=== PATIENT | female | born 1955 | race Caucasian/White ===

== ENCOUNTER 2019-02-05 04:26 | Observation (INO) | payer MEDICARE ==
--- NOTE | 2019-02-05 12:51 | HP ---
CHIEF COMPLAINT: Slurred speech. HISTORY OF PRESENT ILLNESS: The patient is a 63-year-old female with no past medical history, who presents to the hospital with complaints of slurred speech going on for the past 2 or 3 days. The patient states that she has been having some hard times getting words out at times. They last for very brief moments and then go away. She stated that she had an episode tonight around 10 p.m., where she could not really get her words out, so she came into the hospital for further evaluation. The patient currently denies any fevers or chills, any nausea, vomiting, or diarrhea. PAST MEDICAL HISTORY: Denies any past medical history. PAST SURGICAL HISTORY: She has a history of back surgery with titanium rods in her back, and . ALLERGIES: SHE HAS NO KNOWN DRUG ALLERGIES. MEDICATIONS: She takes none. FAMILY HISTORY: Mother had an aneurysm. REVIEW OF SYSTEMS: All negative except for the ones mentioned above in the HPI. SOCIAL HISTORY: She smokes 3/4 packs a day. Drinks 3-4 beers a day. Denies any drug use. She is a full code. Lives with her son. LABORATORY RESULTS: As of the following; Sodium 132, potassium 5.0, BUN of 7, creatinine 0.63, glucose of 83. Her troponin is 0.04. INR is normal. WBC of 6.2, hemoglobin of 14.8, hematocrit of 42.6, platelets of 183. Urine appears to be clear. She did have a CT head, which indicated chronic left parietal occipital infarct. She also had a chest x-ray, which did not show any acute abnormalities. ASSESSMENT AND PLAN: The patient is a very pleasant 63-year-old female, who presents to the hospital with complaints of slurred speech. 1. Slurred speech, most likely secondary to transient ischemic attack versus stroke. The patient's CT does indicate an old parietal occipital stroke. We will order an MRI. However, I am unclear if this is compatible with her titanium michelle in her spine. We will also start her on aspirin and statin and also check a lipid level in the morning. We will check carotid Dopplers and an echocardiogram. The patient has been advised against smoking cessation. However, I am not sure if that will be possible. The patient states that she wants to continue to smoke. I did advise her I will put her on a nicotine patch while she is here. 2. Smoking cessation. The patient will have a nicotine patch. 3. Deep venous thrombosis prophylaxis. We will put the patient on SCDs and subcu Lovenox. Job ID: [id number]
--- NOTE | 2019-02-05 13:19 | ULT ---
BILATERAL CAROTID DUPLEX ULTRASOUND: HISTORY: Stroke TECHNIQUE: Grayscale, color-flow and spectral Doppler ultrasound imaging of the extracranial carotid artery syst ems and vertebral arteries was performed bilaterally. FINDINGS: There is mild atherosclerotic plaque involving the proximal internal carotid arteries bilaterally. The peak systolic velocity in the right ICA measures 105.4 cm/s. The peak systolic velocity in the r ight CCA measures 65.2 cm/s. The peak systolic velocity in the left ICA measures 124.5 cm/s. The peak systolic velocity in the left CCA measures 95.7 cm/s. The right IC/CC ratio is1.6. The left IC/CC ratio is 1.3. Vertebral flow: antegrade, bilaterally. . IMPRESSION: No hemodynamically significant stenosis of Both ICAs.
[2019-02-05] MEDS ORDERED: Lorazepam 2 MG/ML VIAL SLOW IVP PRN (13:44)
[2019-02-05 14:55] VITALS: BMI 23.6
[2019-02-05] MEDS: Nicotine 14 MG PATCH TOP SCH (14:56)
[2019-02-05] MEDS ORDERED: Atorvastatin Calcium 40 MG TAB PO SCH (21:00)
[2019-02-06 05:26] LABS: Cardiac Risk 2.7 (Less than 4.5)
[2019-02-06] MEDS ORDERED: Aspirin Chewable 81 MG TAB PO SCH (09:00)
[2019-02-06] MEDS ORDERED: Atorvastatin Calcium 40 MG TAB PO SCH (09:00)
--- NOTE | 2019-02-06 12:00 | MRI ---
Brain MRI without contrast: 02/05/2019 COMPARISON: None HISTORY: Altered mental status with clinical concern for acute infarction TECHNIQUE: Multiplanar multisequence MR imaging of the brain is provided without contrast FINDINGS: The diffusion weighted imaging demonstrates no evidence for acute infarction. The axial gradient echo imaging demonstrates no evidence for intracranial hemorrhage. There is multifocal encephalomalacia within the left cerebral hemisphere including the left frontal l obe laterally, the left posterior superior frontoparietal region and the left occipital lobe, evidence of multifocal prior infarction. Arterial flow voids at the axial level of the skull base appear unremarkable on the T2-weighted imagi ng. The visualized paranasal sinuses/mastoid air cells are well aerated. There are a few scattered foci of increased T2 and FLAIR signal within the white matter and thien, russell dence of small vessel disease. Regional bone marrow signal intensity appears within normal limits. IMPRESSION: Evidence of multifocal prior left sided cerebral infarction. No MR evidence of acute infa rction or intracranial hemorrhage.
[2019-02-06] MEDS: Nicotine 14 MG PATCH TOP SCH (15:58)
[2019-02-06 16:05] VITALS: BP 214/89; TEMP 98.1
--- NOTE | 2019-02-07 20:32 | DIS ---
DATE OF ADMISSION: 02/05/2019 DATE OF DISCHARGE: 02/06/2019 DISCHARGE DIAGNOSES: 1. Transient ischemic attack. 2. History of prior cerebrovascular accident. 3. Hypertension. 4. Tobacco abuse. 5. Alcohol abuse. HISTORY OF PRESENT ILLNESS: This patient is a 63-year-old female, who presented to the hospital via the emergency department. The patient reports that she was at home in her usual state of health and had only drank about 4 beers a day when she had an episode in which she was having difficulty speaking, she felt as though she knew what she wanted to say but was having difficulty getting the words out. Her boyfriend called an ambulance and she reports that by the time the ambulance arrived, she was completely back to normal, had no residual symptoms. The patient was noted to smoke about 15 cigarettes a day and reported that she drinks 3 to 4 beers per day, subsequently told me that she had only drank 4 a day, indicating possibly that was more utilization than that. She initially had a CT scan showing old parietal and occipital CVAs and labs were otherwise largely unremarkable. She was placed on observation. She underwent a carotid Doppler, which was unremarkable for significant occlusive disease. She had an echocardiogram revealing an EF of 60% to 65% and otherwise, generally normal echocardiogram. She did have an MRI of the brain, which did indicate similar to the CT scan multifocal prior left-sided cerebral infarction, but no evidence of anything acute. On followup with the patient, she was unaware of any time in the past which she might have suffered any type of stroke, she had no residual right-sided weakness or numbness at any time that she could recall. The patient was walking the halls well. She was fully functional. She had no symptoms throughout her hospitalization. I did explain to her the prior CVAs and the impact that her smoking was having on her health, I showed her of her MRI findings as well. However, given no acute findings on the MRI, it was consistent with more likely a TIA in this setting. She had normal echo, normal carotids, and no findings on her telemetry monitoring to suggest arrhythmia such as atrial fibrillation. Her blood pressure was running consistently high throughout her admission; therefore, I felt it was reasonable to discharge the patient with aspirin, statin, new blood pressure medications, and she already has followup with a new PCP starting the first of the year. She also reported a commitment to smoking cessation and was interested in continuing to use the nicotine patches as a mode to do that. PHYSICAL EXAMINATION: VITAL SIGNS: At the time of discharge, temperature was 98.0, pulse 75, respirations 15, O2 saturation 97% on room air, BP was 183/78. GENERAL: She was awake and alert, pleasant, cooperative. HEART: Regular rate and rhythm. LUNGS: Clear bilaterally, slightly diminished. ABDOMEN: Benign. EXTREMITIES: Had no cyanosis, clubbing, or edema. She had full range of motion. She was very eager and almost adamant to go home at the time of discharge. She had all of her questions answered. She was also strongly encouraged to obtain a blood pressure monitor for home use and if her blood pressure after starting the new medication continued to run consistently above 140/90, she should pursue followup with a primary care provider sooner than later, and again, she and her boyfriend expressed of full understanding. DISPOSITION: The patient is discharged to home in stable condition. ACTIVITY: As tolerated. DIET: She will be on a heart healthy diet. MEDICATIONS: She will be on: 1. Aspirin 81 mg daily. 2. Atorvastatin 40 mg daily. 3. Lisinopril/HCTZ 10/12.5 mg one p.o. daily. FOLLOWUP: She is to follow up with her PCP that she is establishing with and she can return to the hospital at any time should she have the need to do so. Again, the patient was explained the potential for using the nicotine patches over the counter as a smoking cessation aid. Job ID: [id number]
== END 2019-02-06 16:19 | disposition home or self-care (01) ==
LOC: ERS 04:26 → 2SE 06:09
PROVIDERS: ADMIT Internal Medicine; ATTEND Internal Medicine
DX: G45.9 Transient cerebral ischemic attack, unspecified (principal); I10 Essential (primary) hypertension; F17.210 Nicotine dependence, cigarettes, uncomplicated; F10.10 Alcohol abuse, uncomplicated; Z82.49 Family history of ischemic heart disease and other diseases of the circulatory system; Z86.73 Personal history of transient ischemic attack (TIA), and cerebral infarction without residual deficits
CPT/HCPCS: 70551; 80061; 93306; 93880; 99285; G0378 ×2; 36415